=== PATIENT | female | born 1955 | race Caucasian/White ===

== ENCOUNTER 2018-06-12 10:26 | Outpatient (CLI) | payer OTHER ==
[~2018-06-12 10:26] MED LIST: ASA-EC81 MG PO; CARDURA1 MG PO; CRESTOR10 MG PO; CYANOCOBALAMIN; ELABIL PO; GLUCOTROL5 MG/BOTTL PO; HYZAAR 100-251 UDTAB PO; LYRICA50 MG PO; METFORMIN HCL750 MG PO; MOBIC15 MG PO; NEURONTIN800 MG PO; NORMODYNE200 MG PO; VERAPAMIL ER300 MG PO
== END 2018-06-12 10:47 | disposition home or self-care (01) ==
LOC: MAMO-SONO 10:26
DX: Z12.31 Encounter for screening mammogram for malignant neoplasm of breast (principal); Z87.898 Personal history of other specified conditions; N61.0 Mastitis without abscess

== ENCOUNTER → 2019-01-31 | Outpatient (CLI) | payer OTHER | END | disposition home or self-care (01) | LOC: NUCLEAR 12:08 | DX: M81.0 Age-related osteoporosis without current pathological fracture (principal) ==

== ENCOUNTER → 2019-08-10 | Outpatient (CLI) | payer OTHER | END | disposition home or self-care (01) | LOC: SONOGRAMA 11:13 | DX: E03.8 Other specified hypothyroidism (principal); E04.1 Nontoxic single thyroid nodule ==

== ENCOUNTER 2020-06-18 12:48 | Outpatient (CLI) | payer OTHER | END 2020-06-18 13:01 | disposition home or self-care (01) | LOC: RAD 12:48 | PROVIDERS: ATTEND Internal Medicine Cardiovascular Disease | DX: M75.122 Complete rotator cuff tear or rupture of left shoulder, not specified as traumatic (principal); M12.812 Other specific arthropathies, not elsewhere classified, left shoulder ==

== ENCOUNTER 2020-09-29 13:46 | Outpatient (CLI) | payer OTHER | END 2020-09-29 13:55 | disposition home or self-care (01) | LOC: MRI 13:46 | PROVIDERS: ATTEND Physical Medicine & Rehabilitation | DX: M75.32 Calcific tendinitis of left shoulder (principal); M75.112 Incomplete rotator cuff tear or rupture of left shoulder, not specified as traumatic | CPT/HCPCS: 73221 ==

== ENCOUNTER → 2020-10-13 | Outpatient (CLI) | payer OTHER | END | disposition home or self-care (01) | LOC: MAMO-SONO 12:45 | PROVIDERS: ATTEND Internal Medicine Endocrinology, Diabetes & Metabolism | DX: Z12.31 Encounter for screening mammogram for malignant neoplasm of breast (principal); N64.89 Other specified disorders of breast; R92.0 Mammographic microcalcification found on diagnostic imaging of breast ==

== ENCOUNTER 2020-10-16 15:34 | Outpatient (CLI) | payer OTHER | END 2020-10-16 15:50 | disposition home or self-care (01) | LOC: RAD 15:34 | PROVIDERS: ATTEND Physical Medicine & Rehabilitation | DX: M54.2 Cervicalgia (principal) ==

== ENCOUNTER 2021-07-13 13:08 | Outpatient (CLI) | payer OTHER | END 2021-07-13 13:22 | disposition home or self-care (01) | LOC: SONOGRAMA 13:08 | PROVIDERS: ATTEND Internal Medicine Endocrinology, Diabetes & Metabolism | DX: E04.1 Nontoxic single thyroid nodule (principal); M19.041 Primary osteoarthritis, right hand; M19.042 Primary osteoarthritis, left hand; M06.8A Other specified rheumatoid arthritis, other specified site ==

== ENCOUNTER 2022-04-08 15:21 | Outpatient (CLI) | payer OTHER | END 2022-04-08 15:30 | disposition home or self-care (01) | LOC: RAD 15:21 | PROVIDERS: ATTEND Physical Medicine & Rehabilitation | DX: M54.2 Cervicalgia (principal); M54.6 Pain in thoracic spine ==

== ENCOUNTER 2022-09-22 19:44 | Emergency (ER) | payer OTHER ==
[~2022-09-22] VITALS: Ht 160 cm; Wt 76.2 kg
[2022-09-22] MEDS ORDERED: SYNTHROID50 MCG PO (20:15)
[2022-09-22] MEDS ORDERED: OMEGA-3 ACID ETH1 GM PO (20:16)
[2022-09-22] MEDS ORDERED: JARDIANCE10 MG PO (20:16)
[2022-09-22] MEDS ORDERED: GABAPENTIN800 M1 PO (20:16)
[2022-09-22] MEDS ORDERED: SIMVASTATIN20 MG PO (20:17)
== END 2022-09-22 23:56 | disposition home or self-care (01) ==
LOC: ER 19:44
DX: J06.9 Acute upper respiratory infection, unspecified (principal); Z88.0 Allergy status to penicillin; Z88.2 Allergy status to sulfonamides; Z20.822 Contact with and (suspected) exposure to COVID-19

== ENCOUNTER 2023-03-09 08:54 | Outpatient (CLI) | payer OTHER ==
[~2023-03-09 08:54] MED LIST changes: +GABAPENTIN800 M1 PO; +JARDIANCE10 MG PO; +OMEGA-3 ACID ETH1 GM PO; +SIMVASTATIN20 MG PO; +SYNTHROID50 MCG PO
== END 2023-03-09 09:01 | disposition home or self-care (01) ==
LOC: SONOGRAMA 08:54
PROVIDERS: ATTEND Physical Medicine & Rehabilitation
DX: M25.511 Pain in right shoulder (principal); E04.1 Nontoxic single thyroid nodule

== ENCOUNTER 2023-03-18 13:20 | Outpatient (CLI) | payer OTHER | END 2023-03-18 13:25 | disposition home or self-care (01) | LOC: NUCLEAR 13:20 | PROVIDERS: ATTEND Internal Medicine Endocrinology, Diabetes & Metabolism | DX: M81.0 Age-related osteoporosis without current pathological fracture (principal) ==

== ENCOUNTER 2023-06-19 20:41 | Emergency (ER) | payer OTHER ==
[~2023-06-19] VITALS: Ht 160 cm; Wt 72.6 kg
[2023-06-19] MEDS ORDERED: MAXIMUM D3325 MCG PO (21:22)
== END 2023-06-19 23:06 | disposition home or self-care (01) ==
LOC: ER 20:41
DX: S05.01XA Injury of conjunctiva and corneal abrasion without foreign body, right eye, initial encounter (principal); W44.8XXA Other foreign body entering into or through a natural orifice, initial encounter; Y92.018 Other place in single-family (private) house as the place of occurrence of the external cause; Z88.0 Allergy status to penicillin; Z88.2 Allergy status to sulfonamides; E11.9 Type 2 diabetes mellitus without complications; Z79.84 Long term (current) use of oral hypoglycemic drugs; I10 Essential (primary) hypertension

== ENCOUNTER 2024-04-05 14:23 | Outpatient (CLI) | payer OTHER ==
[~2024-04-05 14:23] MED LIST changes: +MAXIMUM D3325 MCG PO
== END 2024-04-05 14:25 | disposition home or self-care (01) ==
LOC: MRI 14:23
PROVIDERS: ATTEND Physical Medicine & Rehabilitation
DX: M54.2 Cervicalgia (principal); M54.12 Radiculopathy, cervical region
CPT/HCPCS: 72141

== ENCOUNTER 2024-04-10 12:58 | Outpatient (CLI) | payer OTHER | END 2024-04-10 13:03 | disposition home or self-care (01) | LOC: MAMO-SONO 12:58 | PROVIDERS: ATTEND Internal Medicine Cardiovascular Disease | DX: N60.11 Diffuse cystic mastopathy of right breast (principal); N60.12 Diffuse cystic mastopathy of left breast; Z12.31 Encounter for screening mammogram for malignant neoplasm of breast ==

== ENCOUNTER 2025-04-26 11:33 | Outpatient (CLI) | payer OTHER | END 2025-04-26 11:34 | disposition home or self-care (01) | LOC: NUCLEAR 11:33 | PROVIDERS: ATTEND Physical Medicine & Rehabilitation | DX: M81.0 Age-related osteoporosis without current pathological fracture (principal) ==